=== PATIENT | female | born 1970 | race Caucasian/White ===

== ENCOUNTER 2017-04-29 13:52 | Emergency (ER) | payer MEDICARE, MEDICAID ==
[~2017-04-29] VITALS: Ht 167.6 cm; Wt 57.0 kg
[2017-04-29] MEDS ORDERED: IBUPROFEN 600MG TABLET PO ONE (14:45)
[2017-04-29] MEDS ORDERED: LORAZEPAM 1MG TABLET PO ONE (14:45)
[2017-04-29 14:50] VITALS: BP 116/82
== END 2017-04-29 15:03 | disposition home or self-care (01) ==
LOC: ER 13:52
DX: S13.4XXA Sprain of ligaments of cervical spine, initial encounter (principal); J45.909 Unspecified asthma, uncomplicated; F31.9 Bipolar disorder, unspecified; F43.10 Post-traumatic stress disorder, unspecified; F12.10 Cannabis abuse, uncomplicated; F17.200 Nicotine dependence, unspecified, uncomplicated; Z88.0 Allergy status to penicillin; Z88.1 Allergy status to other antibiotic agents; V49.69XA Unspecified car occupant injured in collision with other motor vehicles in traffic accident, initial encounter; Y93.89 Activity, other specified; Y99.8 Other external cause status; Y92.410 Unspecified street and highway as the place of occurrence of the external cause
CPT/HCPCS: 99283

== ENCOUNTER 2017-05-12 14:21 | Emergency (ER) | payer MEDICARE, MEDICAID ==
[~2017-05-12] VITALS: Ht 165.1 cm; Wt 51.0 kg
[2017-05-12 14:45] VITALS: BP 111/76
[2017-05-12] MEDS ORDERED: LORA0.5T2 PO (14:50)
[2017-05-12] MEDS ORDERED: ALBU4TAB6 PO (14:50)
== END 2017-05-12 19:22 | disposition left against medical advice (07) ==
LOC: ER 14:37
DX: Z53.21 Procedure and treatment not carried out due to patient leaving prior to being seen by health care provider (principal)

== ENCOUNTER 2018-02-17 09:16 | Emergency (ER) | payer MEDICARE, MEDICAID ==
[~2018-02-17] VITALS: Ht 162.6 cm; Wt 65.0 kg
[~2018-02-17 09:16] MED LIST: ALBU4TAB6 PO; LORA0.5T2 PO
[2018-02-17] MEDS ORDERED: LORAZEPAM 1MG TABLET PO ONE (10:45)
[2018-02-17] MEDS ORDERED: LEVETIRACETAM 500MG/5ML CUP PO ONE (10:45)
[2018-02-17] MEDS ORDERED: ONDANSETRON 4MG ODT PO ONE (11:15)
[2018-02-17 11:39] LABS: CLARITY URINE TURBID (CLEAR); COLOR URINE YELLOW (YELLOW); KETONES URINE NEGATIVE (NEGATIVE); LEUKOCYTE ESTERASE URINE 1+ (NEGATIVE); NITRITE URINE POSITIVE (NEGATIVE); OCCULT BLOOD URINE 1+ (NEGATIVE); PROTEIN URINE NEGATIVE (NEGATIVE); SPECIFIC GRAVITY URINE 1.018 (1.005-1.030)
[2018-02-17 12:16] LABS: METHADONE URINE SCREEN NEGATIVE (NEGATIVE); OPIATES URINE SCREEN NEGATIVE (NEGATIVE); PHENCYCLIDINE URINE SCREEN NEGATIVE (NEGATIVE)
[2018-02-17 12:17] LABS: *BARBITURATES SCREEN URINE NEGATIVE (NEGATIVE); *BENZODIAZEPINES SCREEN URINE NEGATIVE (NEGATIVE); *COCAINE SCREEN URINE NEGATIVE (NEGATIVE)
[2018-02-17 12:24] VITALS: BP 138/72
[2018-02-17 12:29] LABS: *AMPHETAMINES SCREEN URINE PRESUMTIVE POSITIVE (NEGATIVE); CANNABINOID URINE SCREEN PRESUMTIVE POSITIVE (NEGATIVE)
== END 2018-02-17 12:26 | disposition home or self-care (01) ==
LOC: ER 09:16
DX: R06.03 Acute respiratory distress (principal); F41.9 Anxiety disorder, unspecified; Z88.3 Allergy status to other anti-infective agents; F15.10 Other stimulant abuse, uncomplicated; F31.9 Bipolar disorder, unspecified; J45.909 Unspecified asthma, uncomplicated; F43.10 Post-traumatic stress disorder, unspecified; F17.200 Nicotine dependence, unspecified, uncomplicated; F12.10 Cannabis abuse, uncomplicated; Z90.49 Acquired absence of other specified parts of digestive tract; N30.00 Acute cystitis without hematuria
CPT/HCPCS: 80305; 81003; 99284; Q0162

== ENCOUNTER 2018-02-19 10:02 | Emergency (ER) | payer MEDICARE, MEDICAID ==
[~2018-02-19] VITALS: Ht 165.1 cm; Wt 68.0 kg
[2018-02-19 10:05] VITALS: BP 115/52
[2018-02-19] MEDS ORDERED: LEVETIRACETAM 500MG TABLET PO ONE (11:00)
[2018-02-19] MEDS ORDERED: LORAZEPAM 1MG TABLET PO ONE (11:00)
== END 2018-02-19 11:34 | disposition home or self-care (01) ==
LOC: ER 10:12
DX: G40.909 Epilepsy, unspecified, not intractable, without status epilepticus (principal); F41.9 Anxiety disorder, unspecified; Z76.0 Encounter for issue of repeat prescription; J45.909 Unspecified asthma, uncomplicated; F17.210 Nicotine dependence, cigarettes, uncomplicated; F12.10 Cannabis abuse, uncomplicated; Z90.49 Acquired absence of other specified parts of digestive tract; Z88.3 Allergy status to other anti-infective agents; Z71.6 Tobacco abuse counseling; Z59.0 Homelessness
CPT/HCPCS: 99283; 99406

== ENCOUNTER 2018-02-20 10:36 | Emergency (ER) | payer MEDICARE, MEDICAID ==
[~2018-02-20] VITALS: Ht 165.1 cm; Wt 60.0 kg
[2018-02-20 10:38] VITALS: BP 113/65
== END 2018-02-20 12:50 | disposition home or self-care (01) ==
LOC: ER 10:49
DX: R56.9 Unspecified convulsions (principal); J45.909 Unspecified asthma, uncomplicated; F31.9 Bipolar disorder, unspecified; F12.10 Cannabis abuse, uncomplicated; Z88.1 Allergy status to other antibiotic agents; Z88.8 Allergy status to other drugs, medicaments and biological substances; Z79.899 Other long term (current) drug therapy
CPT/HCPCS: 99283